=== PATIENT | male | born 1990 | race Caucasian/White ===

== ENCOUNTER 2016-12-09 17:48 | Outpatient (CLI) | payer OTHER | END 2016-12-09 23:00 | disposition home or self-care (01) | LOC: LAB SRH 17:48 | DX: R19.7 Diarrhea, unspecified (principal) | CPT/HCPCS: 90112; 90124; 97340; 99262 ==

== ENCOUNTER 2016-12-12 18:40 | Outpatient (CLI) | payer OTHER | END 2016-12-12 23:00 | disposition home or self-care (01) | LOC: LAB SRH 18:40 | DX: R19.7 Diarrhea, unspecified (principal) | CPT/HCPCS: 90112; 90124; 91218; 92505; 99262 ==

== ENCOUNTER 2016-12-15 13:16 | Outpatient (CLI) | payer OTHER | END 2016-12-15 23:00 | LOC: LAB SRH 13:16 | DX: R19.7 Diarrhea, unspecified (principal) | CPT/HCPCS: 90124 ==